=== PATIENT | male | born 1965 | race African-American/Black ===

== ENCOUNTER 2024-10-14 21:10 | Inpatient (IN) | payer SELFPAY ==
[~2024-10-14] VITALS: Ht 180.3 cm; Wt 96.2 kg
[2024-10-14 23:36] LABS: BASOPHILS % 0.2 % (0.0-2.0); DIFFERENTIAL COMMENT 0; EOSINOPHILS % 0.7 % (0.0-5.0); HEMATOCRIT. 29.9 % (42.0-52.0); HEMOGLOBIN. 9.4 g/dL (14.0-18.0); LYMPHOCYTES % 24.9 % (20.0-50.0); MEAN CORPUSCULAR HEMOGLOBIN 24.7 pg (28.0-32.0); MEAN CORPUSCULAR HGB CONC 31.5 g/dL (31.0-37.0); MEAN CORPUSCULAR VOLUME 78.5 fL (80.0-94.0); MEAN PLATELET VOLUME 8.1 fl (7.4-10.4); MONOCYTES % 14.6 % (2.0-8.0); NEUTROPHILS % 59.6 % (40.0-76.0); PLATELET 341 x1000/uL (130-400); RED CELL DISTRIBUTION WIDTH 12.9 % (11.6-14.6); WHITE BLOOD COUNT 12.9 x1000/uL (4.5-11.0)
[2024-10-14 23:40] LABS: CHLORIDE 105 mEq/L (98-107); POTASSIUM 4.2 mEq/L (3.5-5.1); SODIUM 141 mEq/L (136-145)
[2024-10-14 23:41] LABS: CALCIUM 9.5 mg/dL (8.7-10.4); CARBON DIOXIDE 29 mEq/L (21-32)
[2024-10-14 23:46] LABS: CREATININE 1.1 mg/dL (0.6-1.3); GLUCOSE 148 mg/dL (70-105); UREA NITROGEN BLOOD 12 mg/dL (9-23)
[2024-10-14 23:47] LABS: TROPONIN I HIGH SENSITIVITY 18 ng/L (3.0-53)
[2024-10-14 23:48] LABS: CREATINE KINASE 229 IU/L (46-171)
[2024-10-15] MEDS ORDERED: ACETAMINOPHEN 325MG TABLET PO PRN ×2 (09:30)
[2024-10-15] MEDS ORDERED: IPRATROPIUM/ALBUTEROL 0.5-3(2.5)MG/3ML NEB HHN PRN (09:30)
[2024-10-15] MEDS ORDERED: ONDANSETRON HCL 4MG/2ML INJ IV PRN (09:30)
[2024-10-15] MEDS ORDERED: MAGNESIUM/ALUMINUM HYDROXIDE/SIMETHICONE 30ML UDC PO PRN (09:30)
[2024-10-15] MEDS ORDERED: DOCUSATE SODIUM 100MG CAPSULE PO PRN (09:30)
[2024-10-15] MEDS: AMLODIPINE 5MG TABLET PO NR (11:24)
[2024-10-15 15:45] VITALS: BP 157/82; PULSE 80; RESP 20; TEMP 36.5292
[2024-10-15] MEDS: GUAIFENESIN 200MG/10ML SUGAR FREE UDC PO PRN (20:29)
[2024-10-16] MEDS: CLONIDINE 0.1MG TABLET PO PRN (05:43)
[2024-10-16 08:00] VITALS: BP 138/74; PULSE 63; RESP 18; TEMP 36.16956; O2SAT 97
[2024-10-16] MEDS: AMLODIPINE 10MG TABLET PO SCH (09:30)
[2024-10-16 12:00] VITALS: BP 142/80; PULSE 91; RESP 19; TEMP 36.55848; O2SAT 97
[2024-10-16 16:00] VITALS: BP 161/84; PULSE 86; RESP 18; TEMP 36.72516; O2SAT 97
[2024-10-16] MEDS: AZITHROMYCIN 500MG/250ML 250 ML IV SCH (17:21)
[2024-10-16 20:00] VITALS: BP 140/80; PULSE 78; RESP 19; TEMP 36.44736; O2SAT 97
[2024-10-17] VITALS: BP 146/82; PULSE 90; RESP 19; TEMP 36.22512; O2SAT 97
[2024-10-17 04:00] VITALS: BP 138/82; PULSE 80; RESP 19; TEMP 36.22512; O2SAT 97
[2024-10-17 08:00] VITALS: BP 135/71; PULSE 85; RESP 18; TEMP 36.16956; O2SAT 93
[2024-10-17 12:00] VITALS: BP 145/84; PULSE 98; RESP 18; TEMP 36.00288; O2SAT 97
[2024-10-17 12:17] VITALS: BP 145/84; PULSE 98; TEMP 96.8; O2SAT 97
== END 2024-10-17 12:45 | disposition home or self-care (01) | DRG 52 ==
LOC: ER 21:10 → 7EST 10-15 02:12
PROVIDERS: ADMIT Internal Medicine; ATTEND Internal Medicine
DX: G93.49 Other encephalopathy (principal); D50.9 Iron deficiency anemia, unspecified; D72.829 Elevated white blood cell count, unspecified; F20.9 Schizophrenia, unspecified; E11.9 Type 2 diabetes mellitus without complications; R07.89 Other chest pain; I10 Essential (primary) hypertension; Z59.00 Homelessness unspecified
CPT/HCPCS: 36415; 71045; 80048; 82550; 83605; 83880; 84484; 85025; 93005; 99285; J0456